=== PATIENT | female | born 1955 | race Caucasian/White ===

== ENCOUNTER → 2017-11-14 | Outpatient (CLI) | payer BC ==
[~2017-11-14] MED LIST: CETIRIZINE; LEVAQUIN 5500 MG/TA1 PO; LIPITOR20 MG PO; MUCINEX DM 30 M1 TE1 PO; PREDNISONE20 MG PO; PREMPRO 0.625/21 TAB PO; PROVENTIL0.09 MG/A1 IH; QUINAPRIL5 MG PO; SERTRALINE100 MG PO; TYLENOL 325MG325 MG PO; VYTORIN; ZOCOR 40MG40 MG PO; ZOFRAN ODT8 MG PO; ZOLOFT100 MG PO; ZYRTEC 10MG10 MG PO
== END ==
LOC: COL.RAD 07:50
DX: R39.198 Other difficulties with micturition (principal); M46.86 Other specified inflammatory spondylopathies, lumbar region; Z90.49 Acquired absence of other specified parts of digestive tract

== ENCOUNTER → 2018-03-31 | Outpatient (CLI) | payer BC | LOC: MC.RAD 10:33 | DX: Z12.31 Encounter for screening mammogram for malignant neoplasm of breast (principal); R92.0 Mammographic microcalcification found on diagnostic imaging of breast ==

== ENCOUNTER → 2018-04-06 | Outpatient (CLI) | payer BC | LOC: MC.RAD 10:30 | DX: R92.0 Mammographic microcalcification found on diagnostic imaging of breast (principal) ==

== ENCOUNTER → 2018-04-12 | Outpatient (CLI) | payer BC | LOC: MC.RAD 09:52 | DX: Z12.31 Encounter for screening mammogram for malignant neoplasm of breast (principal); R92.0 Mammographic microcalcification found on diagnostic imaging of breast; Z98.82 Breast implant status ==

== ENCOUNTER → 2018-06-02 | Outpatient (CLI) | payer BC | LOC: COL.RAD 11:30 → COL.PUL 14:30 | DX: Z01.818 Encounter for other preprocedural examination (principal); C91.11 Chronic lymphocytic leukemia of B-cell type in remission; K76.0 Fatty (change of) liver, not elsewhere classified; Z87.891 Personal history of nicotine dependence ==

== ENCOUNTER 2018-06-23 13:30 | Outpatient (RCR) | payer BC ==
[2018-06-23] VITALS (14 sets, daily range): BP systolic 100–115; BP diastolic 48–60; PULSE 68–89; TEMP 98–98.2
[~2018-06-23] VITALS: Ht 157.5 cm; Wt 95.5 kg
--- NOTE | 2018-06-23 21:34 | NUR ---
Discontinued IV intact.
== END 2018-06-23 21:35 | disposition home or self-care (01) ==
LOC: EUO 13:30
DX: C91.11 Chronic lymphocytic leukemia of B-cell type in remission (principal); D46.Z Other myelodysplastic syndromes; D69.6 Thrombocytopenia, unspecified
CPT/HCPCS: J7050; P9037; P9040

== ENCOUNTER 2018-06-30 15:52 | Inpatient (IN) | payer BC ==
[~2018-06-30] VITALS: Ht 157.5 cm; Wt 75.9 kg
[2018-06-30 18:09] VITALS: BP 129/30; PULSE 96; TEMP 98.8
[2018-06-30 19:54] LABS: MEAN CELL VOLUME 81 fl (80.0-100.0); MEAN CORPUSCULAR HGB CONC 35 g/dl (33.0-37.0); REDCELL DISTRIBUTION WIDTH-CV 19.6 % (11.5-14.5)
[2018-06-30 20:08] LABS: ALBUMIN 3.9 gm/dL (3.5-5.0); BILIRUBIN,TOTAL 0.6 mg/dL (0.0-1.0); CALCIUM 8.7 mg/dL (8.4-10.2); CREATININE, serum 0.81 mg/dL (0.52-1.25); POTASSIUM 3.8 mmol/L (3.4-5.0); TOTAL PROTEIN 6.8 gm/dL (6.4-8.2)
[2018-06-30 20:16] LABS: HEMATOCRIT 20.3 % (37.0-47.0); MEAN CORPUSCULAR HEMOGLOBIN 28 pg (27.0-31.0); PLATELET COUNT 26 K/mm3 (130-400)
[2018-06-30] MEDS ORDERED: DIFLUCAN 100MG100 MG PO (20:42)
[2018-06-30] MEDS ORDERED: ZOVIRAX400 MG PO (20:43)
[2018-06-30 20:44] LABS: BAND 1 % (0-10); EOSINOPHIL 3 % (0-4); LYMPHOCYTE 86 % (20.0-51.0); METAMYELOCYTE 1 % (0-0); NEUTROPHILS 6 % (42.0-75.2); NUCLEATED RED BLOOD CELL 1 (0-6)
[2018-06-30] MEDS ORDERED: MUCINEX D1 TER PO (20:44)
[2018-06-30 20:47] LABS: ANISOCYTOSIS 3+; HYPOCHROMIA 2+; MICROCYTOSIS 2+; OVALOCYTES 1+; POIKILOCYTOSIS 1+; SCHISTOCYTES 1+
[2018-06-30 20:48] LABS: PLATELET ESTIMATE DECREASED (NORMAL); TEAR DROP CELLS 1+
[2018-06-30 21:19] VITALS: BP 125/46; PULSE 99; TEMP 101.4
--- NOTE | 2018-06-30 22:50 | NUR ---
Lilly POE called regarding temp 101.4-- states no tylenol at this point- wants to see see the trend of temps,,
[2018-06-30 23:36] VITALS: BP 103/43; PULSE 96; TEMP 101.6
[2018-07-01] VITALS (11 sets, daily range): BP systolic 104–134; BP diastolic 40–75; PULSE 69–94; TEMP 97.8–100.8
[2018-07-01 02:30] LABS: MUCOUS Present /lpf; PH 6 (5-8); SQUAMOUS EPITHELIAL 0-2 /hpf; URINE APPEARANCE Clear; URINE BACTERIA Rare /hpf; URINE BILIRUBIN Negative (NEGATIVE); URINE BLOOD Negative (NEGATIVE); URINE COLOR Yellow; URINE GLUCOSE Negative (NEGATIVE); URINE KETONE Negative (NEGATIVE); URINE LEUKOCYTE ESTERASE Negative (NEGATIVE); URINE NITRATE Negative (NEGATIVE); URINE PROTEIN(semi-quant) Negative (NEGATIVE); URINE RBC 0-2 /hpf
[2018-07-01 02:41] LABS: COLLECTION METHOD CLEAN CATCH
--- NOTE | 2018-07-01 06:34 | NUR ---
States did get some good sleep last night-- temp high of 101.6, now 100.6
[2018-07-01 07:41] LABS: MEAN CELL VOLUME 82 fl (80.0-100.0); MEAN CORPUSCULAR HGB CONC 34 g/dl (33.0-37.0); RED BLOOD COUNT 2.23 M/mm3 (4.10-5.30); REDCELL DISTRIBUTION WIDTH-CV 19.6 % (11.5-14.5)
[2018-07-01 07:52] LABS: CALCIUM 8.6 mg/dL (8.4-10.2); CREATININE, serum 0.72 mg/dL (0.52-1.25); POTASSIUM 3.9 mmol/L (3.4-5.0)
[2018-07-01 08:07] LABS: HEMATOCRIT 18.2 % (37.0-47.0); HEMOGLOBIN 6.2 g/dl (12.5-16.0); MEAN CORPUSCULAR HEMOGLOBIN 28 pg (27.0-31.0)
[2018-07-01 08:08] LABS: PLATELET COUNT 26 K/mm3 (130-400)
--- NOTE | 2018-07-01 09:30 | NUR ---
Initial assessment completed. Pain to the left, ventral aspect of her tongue, 2 small sores present. The patient also reported pain to the left inner ear. Independent in the room. Dinesh Bland here to see the patient. See new orders.
--- NOTE | 2018-07-01 09:49 | NUR ---
MELISSA met with the patient to discuss a discharge plan. The patient lives in [place] with her , Diego. The patient reports independence with ADLs and does not use any DME. The patient's PCP is Dr. Mazin Alcantara and the patient receives her prescriptions from [facility]. The patient reports no difficulties obtaining her medications. The patient does not have advanced directives in the EMR, but reports she does have them completed at home. Upon discharge the patient plans to return home with Diego. There are no additional needs at this time.
[2018-07-01 14:15] LABS: ANISOCYTOSIS 3+; BAND 4 % (0-10); HYPOCHROMIA 1+; LYMPHOCYTE 92 % (20.0-51.0); NEUTROPHILS 4 % (42.0-75.2); PLATELET ESTIMATE DECREASED (NORMAL)
--- NOTE | 2018-07-01 15:36 | NUR ---
Transfusion started at this time. Rate at 60ml/hr. The patient was educated to the signs and symptoms of reaction. This nurse to remain at the bedside for the first 15 mins. Rate to increase to 125ml/hr following.
--- NOTE | 2018-07-01 15:43 | NUR ---
Rate increased to 125 ml/hr. No signs or symptoms of reaction. The call light is in place.
--- NOTE | 2018-07-01 20:30 | NUR ---
Initial shift assessment done- states has just minimal pain at this time- throat/left ear/BEGUM-05/21,,Up to bathroom with assist,voiding without problems.
[2018-07-02] VITALS (7 sets, daily range): BP systolic 107–134; BP diastolic 43–499; PULSE 82–96; TEMP 98–99.9
--- NOTE | 2018-07-02 05:56 | NUR ---
Slept fair last night- temp this morning 98.9, quiet night
[2018-07-02 07:57] LABS: GRAN % 1.3 % (42.2-75.2); LYMPH # 0.7 (1.2-3.4); LYMPH % 97.3 % (20.0-51.0); MEAN CELL VOLUME 82 fl (80.0-100.0); MEAN CORPUSCULAR HGB CONC 34 g/dl (33.0-37.0); MONO % 1.4 % (1.7-9.3); RED BLOOD COUNT 2.54 M/mm3 (4.10-5.30); REDCELL DISTRIBUTION WIDTH-CV 18.7 % (11.5-14.5)
--- NOTE | 2018-07-02 08:00 | NUR ---
No shortness of breath or cough. No complaints of pain or needs at this time. Student, RN, Sara Andrews assisting with assessment and medications this morning.
[2018-07-02 08:04] LABS: HEMATOCRIT 20.7 % (37.0-47.0); HEMOGLOBIN 7.1 g/dl (12.5-16.0); MEAN CORPUSCULAR HEMOGLOBIN 28 pg (27.0-31.0); PLATELET COUNT 37 K/mm3 (130-400)
[2018-07-02 08:07] LABS: CALCIUM 8.7 mg/dL (8.4-10.2); CREATININE, serum 0.68 mg/dL (0.52-1.25); POTASSIUM 3.9 mmol/L (3.4-5.0)
--- NOTE | 2018-07-02 11:00 | NUR ---
Assisted up to the shower. No pain or needs at this time. Linens changed at this time.
--- NOTE | 2018-07-02 19:43 | NUR ---
No change throughout the shift. The remains at the bedside. Report given to BÁRBARA Riddle to resume care. Some irritating pain reported to the left ear and ventral, left tongue. However, the mouth pain has improved.
--- NOTE | 2018-07-02 21:25 | NUR ---
Sitting at bedside. Assessment complete. Lungs clear. Heart sounds normal. Bowels active x4. Pulses strong throughout. No edema noted. Rash present midlower back. Bruise to right forearm. Left INT flushes well. Denies pain. Denies needs at this time. Call ligth in reach.
[2018-07-03] VITALS (12 sets, daily range): BP systolic 106–147; BP diastolic 41–55; PULSE 79–96; TEMP 98.4–101.4
--- NOTE | 2018-07-03 01:24 | NUR ---
Resting in bed asleep. Call light in reach.
--- NOTE | 2018-07-03 04:05 | NUR ---
Resting in bed. Call light in reach.
[2018-07-03 06:44] LABS: MEAN CELL VOLUME 81 fl (80.0-100.0); MEAN CORPUSCULAR HGB CONC 35 g/dl (33.0-37.0); RED BLOOD COUNT 2.42 M/mm3 (4.10-5.30); REDCELL DISTRIBUTION WIDTH-CV 18.4 % (11.5-14.5)
[2018-07-03 06:55] LABS: CALCIUM 8.6 mg/dL (8.4-10.2); CREATININE, serum 0.68 mg/dL (0.52-1.25)
[2018-07-03 07:16] LABS: HEMATOCRIT 19.7 % (37.0-47.0); MEAN CORPUSCULAR HEMOGLOBIN 28 pg (27.0-31.0)
[2018-07-03 07:17] LABS: HEMOGLOBIN 6.8 g/dl (12.5-16.0); PLATELET COUNT 34 K/mm3 (130-400)
--- NOTE | 2018-07-03 07:32 | NUR ---
Report given to BÁRBARA Burns. Patient developed rash on midlower back. Notified next shift to pass to hospitalist. Otherwise uneventful night. Resting in bed this AM. Call light in reach.
--- NOTE | 2018-07-03 08:00 | NUR ---
ASSESSMENT COMPLETE. PATIENT IS A&O X3. PATIENT DENIES HAVING PAIN AT THIS TIME. BREATHING IS EVEN AND UNLABORED ON ROOM AIR. LEFT AC INT FLUSHES EASILY AND IS CDI. PATIENT IS SITTING UP IN BED WATCHING TV AND EATING HER BREAKFAST. PATIENT DENIES ANY FURTHER NEEDS AT THIS TIME. CALL LIGHT WITHIN REACH. WILL CONTINUE TO MONITOR.
[2018-07-03 10:51] LABS: LYMPHOCYTE 98 % (20.0-51.0); PLATELET ESTIMATE DECREASED (NORMAL)
[2018-07-03 10:52] LABS: ANISOCYTOSIS 1+; HYPOCHROMIA 1+
--- NOTE | 2018-07-03 11:38 | NUR ---
Initial visit; Patient thanked Officer Lieutenant for offering God's blessings.
--- NOTE | 2018-07-03 15:46 | NUR ---
Blood transfusion started at this time. Verified with BÁRBARA Ramesh. Will remain at the bedside for first 15 minutes. Education regarding blood transfusion and any adverse reactions reviewed with the pt and her . Both verbalize understanding.
--- NOTE | 2018-07-03 18:30 | NUR ---
Patient resting in bed throughout the day. She denies any pain at this time. IV in left AC infiltrated. Removed, catheter intact, applied pressure until bleeding stopped and protective dressing applied. New 20G IV started in right anterior wrist, X1 attempt with no difficulties, patient tolerated well. IV flushes easily with no complaints of burning or pain. Blood is transfusing through IV in right wrist. Patient is resting in bed with at bedside and denies any further questions or concerns at this time. Call light is within reach.
--- NOTE | 2018-07-03 19:00 | NUR ---
Report received from BÁRBARA Burns.
--- NOTE | 2018-07-03 19:28 | NUR ---
Patient resting in bed. Assessment complete. Lungs clear. Heart sounds normal. Bowels active x4. Pulses strong throughout. No edema noted. Rash to midlower back present. Patient reports from "sweating." Reports oral pain to "sores in mouth." Has velvet glove oral compound PRN to aide with discomfort. Left upper arm red and skin taut and warm to touch from infiltration during blood transfusion. Reports mild pain when touched. Refused flonase this evening. Denies other pain. Denies needs at this time. Call light in reach.
--- NOTE | 2018-07-03 22:35 | NUR ---
Patient reports feeling warm. Temperature 101.4. Per progress note-tylenol on hold to follow fever curve. DEANNA Dang notified. No new orders at this time.
[2018-07-04] VITALS (8 sets, daily range): BP systolic 119–150; BP diastolic 45–59; PULSE 52–95; TEMP 98.3–102
--- NOTE | 2018-07-04 00:10 | NUR ---
Patient reports pain in left ear, face, and sore throat. Spoke with DEANNA Dang for order for pain medication. Added one time dose of tylenol 650mg. Provided to patient. Will monitor.
--- NOTE | 2018-07-04 06:28 | NUR ---
Patient resting in bed this AM. Temperature increased to 101.4 resolved with enviromental changes. Received x1 dose of tylenol for headache. Otherwise uneventful night. Call light in reach.
[2018-07-04 06:29] LABS: MEAN CELL VOLUME 81 fl (80.0-100.0); MEAN CORPUSCULAR HGB CONC 35 g/dl (33.0-37.0); RED BLOOD COUNT 2.64 M/mm3 (4.10-5.30); REDCELL DISTRIBUTION WIDTH-CV 17.3 % (11.5-14.5)
[2018-07-04 06:40] LABS: CALCIUM 8.7 mg/dL (8.4-10.2); CREATININE, serum 0.64 mg/dL (0.52-1.25)
[2018-07-04 07:07] LABS: HEMATOCRIT 21.5 % (37.0-47.0); HEMOGLOBIN 7.5 g/dl (12.5-16.0); MEAN CORPUSCULAR HEMOGLOBIN 28 pg (27.0-31.0)
[2018-07-04 07:08] LABS: PLATELET COUNT 39 K/mm3 (130-400)
--- NOTE | 2018-07-04 07:17 | NUR ---
Report given to BÁRBARA Landry.
--- NOTE | 2018-07-04 08:10 | NUR ---
Pt alert and oriented. Pt has mouth sores that velvet glove used to manage. Pt given Ultram to manage pain. Pt rates pain 5/10 at this time sinus and back itching and mouth sore. Pt VS WNL this am. Pt has breakfast ordered and spouse at bedside. Pt IV intact, and no redness or infiltration noted. Pt reported green small sputum this am and let Dr. Herbert know this am. Pt denies further needs and has call light in reach.
[2018-07-04 08:39] LABS: ANISOCYTOSIS 1+; HYPOCHROMIA 1+; LYMPHOCYTE 100 % (20.0-51.0); PLATELET ESTIMATE DECREASED (NORMAL)
--- NOTE | 2018-07-04 18:17 | NUR ---
Pt stable this shift. Pt spiked temp after returned back from CT and was covered with blankets per pt. Pt uncovered and drank water. Pt temp was later rechecked and 99.9 F. Pt has pain in mouth and sinuses and back managed with PRN medications. Pt has family at bedside all day. Pt has not eaten much but has drank fluids well today and supplements. Pt alert and oriented and denies needs at this time. Pt remains on neutropenic reverse isolation precautions.
--- NOTE | 2018-07-04 19:06 | NUR ---
Report received from BÁRBARA Landry
--- NOTE | 2018-07-04 19:06 | NUR ---
Pt report given to Janessa GRANGER
--- NOTE | 2018-07-04 22:25 | NUR ---
Resting in bed. Assessment complete. Lungs clear. Heart sounds normal. Bowels active x4. Pulses strong througout. No edema noted. Rash to midlower back present. No change from previos assessment. Reporting 4/10 in jaw, left ear, and neck. Provided with PRN tramadol. Denies other needs at this time. Call light in reach.
[2018-07-05] VITALS (8 sets, daily range): BP systolic 98–124; BP diastolic 39–93; PULSE 73–84; TEMP 98.8–100.8
--- NOTE | 2018-07-05 01:45 | NUR ---
Patient resting in bed asleep.
--- NOTE | 2018-07-05 03:15 | NUR ---
Resting in bed. Denies needs. Call light in reach.
[2018-07-05 06:40] LABS: MEAN CELL VOLUME 82 fl (80.0-100.0); MEAN CORPUSCULAR HGB CONC 35 g/dl (33.0-37.0); RED BLOOD COUNT 2.54 M/mm3 (4.10-5.30); REDCELL DISTRIBUTION WIDTH-CV 17.6 % (11.5-14.5)
--- NOTE | 2018-07-05 06:45 | NUR ---
Patient had uneventful night. Elevated temps throughout shift. X1 episode of nausea, resolved by drinking water. Denies needs this AM. Report given to BÁRBARA Edward.
[2018-07-05 07:07] LABS: HEMATOCRIT 20.8 % (37.0-47.0); HEMOGLOBIN 7.3 g/dl (12.5-16.0); MEAN CORPUSCULAR HEMOGLOBIN 29 pg (27.0-31.0); PLATELET COUNT 30 K/mm3 (130-400)
--- NOTE | 2018-07-05 08:30 | NUR ---
PT IS a+oX3, pleasant, denies SOB, c/o sharp peircing pain and pressure to lt ear, neck, and lower back. Meds provided per orders. Physical assessment completed. Vitals stable, pt afebrile at this time. call light in reach
[2018-07-05 09:33] LABS: LYMPHOCYTE 98 % (20.0-51.0); NEUTROPHILS 2 % (42.0-75.2)
[2018-07-05 09:35] LABS: ANISOCYTOSIS 1+; HYPOCHROMIA 1+; PLATELET ESTIMATE DECREASED (NORMAL)
--- NOTE | 2018-07-05 13:04 | NUR ---
Warm pack provided per pt request for lt ear
--- NOTE | 2018-07-05 17:09 | NUR ---
Through shift pt vitals have been stable, she is running a low grade temp again at 100.5. Pt denies SOB, dizziness. Pain reported to left ear and neck, meds given per orders. Multiple IV attempts made by this Rn and charge, house has been called. No needs through day, at bedside. call light in reach adn this RN encouraged pt to order dinner
--- NOTE | 2018-07-05 19:20 | NUR ---
Report given to Meseret GRANGER, pt denies needs
--- NOTE | 2018-07-05 23:40 | NUR ---
Tramadol 50mg given at this time for pain to mouth/left ear of 3/10
[2018-07-06] VITALS (13 sets, daily range): BP systolic 93–120; BP diastolic 36–56; PULSE 71–86; TEMP 98.5–100.8
--- NOTE | 2018-07-06 06:03 | NUR ---
States slept well last night-- temp 98.8 at this time, medicated with Tramadol for left ear/mouth pain.
[2018-07-06 06:15] LABS: MEAN CELL VOLUME 82 fl (80.0-100.0); MEAN CORPUSCULAR HGB CONC 34 g/dl (33.0-37.0); RED BLOOD COUNT 2.35 M/mm3 (4.10-5.30); REDCELL DISTRIBUTION WIDTH-CV 17.2 % (11.5-14.5)
[2018-07-06 07:05] LABS: HEMATOCRIT 19.2 % (37.0-47.0); HEMOGLOBIN 6.6 g/dl (12.5-16.0); MEAN CORPUSCULAR HEMOGLOBIN 28 pg (27.0-31.0); PLATELET COUNT 29 K/mm3 (130-400)
[2018-07-06 08:53] LABS: LYMPHOCYTE 98 % (20.0-51.0); NEUTROPHILS 2 % (42.0-75.2)
[2018-07-06 08:54] LABS: HYPOCHROMIA 1+; PLATELET ESTIMATE DECREASED (NORMAL); SCHISTOCYTES 1+
--- NOTE | 2018-07-06 09:00 | NUR ---
Patient sitting in bed finishing breakfast. shift assessment complete. patient denies pain, numbness or tingling, palpitations, dizziness or n/v. right hand IV is CDI. Right forearm IV looks a little swollen and red. Patient will be receiving one unit of blood, will use the right hand IV. Patient up with physical therapy. Pt tolerated well. Call light within reach.
--- NOTE | 2018-07-06 10:20 | NUR ---
patient is stating pain in left side of ear and little in the mouth. patient does have sore under tongue. pt rating pain at 4/10, shooting pain into left ear. patient can have tramadol at this time.
--- NOTE | 2018-07-06 11:41 | NUR ---
SW followed up with patient about discharge plan. Patient reports she plans to return home with her . Patient reports she is walking in the halls without any assistance and without a walker. SW spoke with PT and they report she is doing well. No anticipated discharge needs at this time.
--- NOTE | 2018-07-06 13:55 | NUR ---
Primary nurse was assisted with [id number] patient care by [employer] student Bibi Saldana and [employer] instructor Zoe Buitrago RN-.
--- NOTE | 2018-07-06 15:09 | NUR ---
UNIT OF BLOOD STARTED PER PROTOCOL. BLOOD PRODUCT VERIFIED BY BÁRBARA LOPEZ. WILL REMAIN AT BEDSIDE FOR 15 MIN. SIGNS AND SYMPTOMS OF ADVERSE REACTION DISCUSSED WITH PATIENT.
--- NOTE | 2018-07-06 15:40 | NUR ---
RATE INCREASED TO 100 MLS/HR. PATIENT TOLERATING TRANSFUSION THUS FAR. REMAINED AT BEDSIDE FIRST 15 MINUTES.
--- NOTE | 2018-07-06 15:42 | NUR ---
PATIENT STATES SHE HAS RASH ON LOWER BACK. THIS NURSE CHECKED. IT DOESN'T APPEAR TO BE A RASH, LOOKS LIKE SHE MAY BE BREAKING OUT. PATIENT DID STATE SHE HAD SOME AREAS PRIOR TO ARRIVING HERE BUT IT HAS GOTTEN WORSE. PT STATES IT ITCHES A LITTLE AND NOTICED IT MORE AFTER HER SHOWER.
--- NOTE | 2018-07-06 16:53 | NUR ---
PATIENT RESTING IN BED WITH AT BEDSIDE. BLOOD TRANSFUSION RATE INCREASED TO 125 MLS/HR. PATIENT HAS NO SIGNS OF ADVERSE REACTIONS. PATIENTS RFA IV AND RH IV WERE REMOVED BY BÁRBARA ROSA AFTER PICC LINE PLACEMENT. RFA IV SHOWED PHLEBITIS. WARM PACK PROVIDED. NO OTHER NEEDS AT THIS TIME.
--- NOTE | 2018-07-06 19:12 | NUR ---
PATIENT IS COMPLAINING OF SEVERE PAIN IN LEFT SIDE OF EAR AND NASAL CAVITY. STATED TRAMADOL WAS NOT WORKING. WAS ABLE TO GET MORPHINE PRN, ADMINISTERED 1MG. PATIENT STATES SHE FEELS BETTER. PATIENT ALSO HAD WARM PACK AND THAT HELPED.
--- NOTE | 2018-07-06 19:38 | NUR ---
Report given to BÁRBARA Carl. Patient says she is feeling a little better since the morphine and warm compress.
--- NOTE | 2018-07-06 21:00 | NUR ---
Initial shift assessment done- states pain is ok at this time 07/19 to left ear-- will call when pain meds needed,, PICC to [facility], didnt eat any supper- states no appetite at this time, resting quietly,states overall the Morphine IV is helping with pain control. at bedside.
--- NOTE | 2018-07-06 22:00 | NUR ---
States pain to left ear/throat 11/18--talked with patient, will increase dose to 2mg Morphine at this time
[2018-07-07 03:39] VITALS: BP 110/40; PULSE 80; TEMP 99.9
[2018-07-07 06:02] LABS: MEAN CELL VOLUME 83 fl (80.0-100.0); MEAN CORPUSCULAR HGB CONC 35 g/dl (33.0-37.0); RED BLOOD COUNT 2.42 M/mm3 (4.10-5.30); REDCELL DISTRIBUTION WIDTH-CV 16.2 % (11.5-14.5)
[2018-07-07 06:06] LABS: HEMOGLOBIN 6.9 g/dl (12.5-16.0); MEAN CORPUSCULAR HEMOGLOBIN 29 pg (27.0-31.0)
[2018-07-07 06:07] LABS: PLATELET COUNT 27 K/mm3 (130-400)
--- NOTE | 2018-07-07 06:07 | NUR ---
Quiet night- did get some sleep,, Morphine was just given the one time at start of shift,, this morning states her pain to left ear/thraot is 3/10. would like the 100mg of tramadol at this time- wants to just go back to sleep. High temp this shift was 100.8 at midnight-
--- NOTE | 2018-07-07 07:15 | NUR ---
Bedside shift report received from BÁRBARA Carl .PT in bed resting, denies needs, will continue to monitor.
--- NOTE | 2018-07-07 07:30 | NUR ---
Dr. Bond to see pt this am, orders received for 1U PRBCS, called lab to get ordered but shortly after call received from Dr. Bond and he will transfer pt to [facility] today for further care. Pt updated with pending plan, called Hospitalist team who is admitting to pass along Varun's message. Will continue to monitor.
[2018-07-07 08:39] VITALS: BP 117/46; PULSE 76; TEMP 100.3
[2018-07-07 08:50] LABS: ANISOCYTOSIS 2+; HYPOCHROMIA 1+; LYMPHOCYTE 88 % (20.0-51.0); PLATELET ESTIMATE DECREASED (NORMAL)
--- NOTE | 2018-07-07 11:13 | NUR ---
Pt updated with POC. Physician acceptance confirmed, waiting on a bed at [facility]. Assessment charted. Pt denies needs, will continue to monitor.
[2018-07-07 11:55] VITALS: BP 112/40; PULSE 74; TEMP 99.4
--- NOTE | 2018-07-07 13:20 | NUR ---
Reported off to BÁRBARA Martinez
--- NOTE | 2018-07-07 13:34 | NUR ---
Primary nurse was assisted with [id number] [employer] student Susan Nicholas and [employer] instructor Zoe Buitrago RN-BC
[2018-07-07 15:27] VITALS: BP 114/43; PULSE 79; TEMP 99.8
[2018-07-07 16:40] VITALS: BP 114/43; PULSE 79; TEMP 99.8
--- NOTE | 2018-07-07 17:16 | NUR ---
Report called to [facility] nurse who will be receiving patient this evening. Pt given PRN pain meds as requested for ride in ambulance. Paramedics report given. Pt belongings left with family. Pt left via cart with EMS staff. Criteria met.
== END 2018-07-07 17:15 | disposition short-term general hospital (02) | DRG 809 ==
LOC: MEDICAL 15:52
PROVIDERS: Internal Medicine; Nurse Practitioner Family; Physician Assistant; ADMIT Family Medicine
PROC: 02HV33Z Insertion of Infusion Device into Superior Vena Cava, Percutaneous Approach (ICD-10-PCS; principal; 2018-07-06)
DX: D70.1 Agranulocytosis secondary to cancer chemotherapy (principal); C91.11 Chronic lymphocytic leukemia of B-cell type in remission; T45.1X5A Adverse effect of antineoplastic and immunosuppressive drugs, initial encounter; R50.81 Fever presenting with conditions classified elsewhere; D61.810 Antineoplastic chemotherapy induced pancytopenia; D46.9 Myelodysplastic syndrome, unspecified; I10 Essential (primary) hypertension; E78.5 Hyperlipidemia, unspecified; Z87.891 Personal history of nicotine dependence; J01.20 Acute ethmoidal sinusitis, unspecified; J01.00 Acute maxillary sinusitis, unspecified; K13.70 Unspecified lesions of oral mucosa
CPT/HCPCS: 99222-AI; 99231-AI; 99232-AI; 99239; A4216; C1751; C1894; J0692; J1447; J2270; J3370; J7050; P9040

== ENCOUNTER 2018-07-31 13:30 | Outpatient (RCR) | payer BC ==
--- NOTE | 2018-07-26 13:00 | NUR ---
PICC intact right upper arm with sterile dressing change done with insertion site cleansed with chloraprep x 1, chlorhexidine impregnated disk applied. no signs or symptoms of IV complications noted. no concerns voiced. wrapped with laura to protect catheter.
[2018-07-26 13:24] VITALS: BP 142/69; PULSE 92; TEMP 98.3
[2018-07-26 13:44] LABS: MEAN CELL VOLUME 85 fl (80.0-100.0); MEAN CORPUSCULAR HGB CONC 35 g/dl (33.0-37.0); PLATELET COUNT 67 K/mm3 (130-400); RED BLOOD COUNT 3.09 M/mm3 (4.10-5.30); REDCELL DISTRIBUTION WIDTH-CV 14.4 % (11.5-14.5)
[2018-07-26 13:45] LABS: HEMATOCRIT 26.1 % (37.0-47.0); MEAN CORPUSCULAR HEMOGLOBIN 29 pg (27.0-31.0)
[2018-07-26 13:55] LABS: BASOPHIL 1 % (0-2); LYMPHOCYTE 82 % (20.0-51.0); MYELOCYTE 1 % (0-0); NEUTROPHILS 15 % (42.0-75.2)
[2018-07-26 13:56] LABS: ANISOCYTOSIS 1+; OVALOCYTES 2+; PLATELET ESTIMATE DECREASED (NORMAL); POLYCHROMASIA 1+
[2018-07-27 13:12] LABS: HEMATOCRIT 25.5 % (37.0-47.0); HEMOGLOBIN 8.8 g/dl (12.5-16.0); MEAN CELL VOLUME 84 fl (80.0-100.0); MEAN CORPUSCULAR HEMOGLOBIN 29 pg (27.0-31.0); MEAN CORPUSCULAR HGB CONC 35 g/dl (33.0-37.0); PLATELET COUNT 63 K/mm3 (130-400); RED BLOOD COUNT 3.03 M/mm3 (4.10-5.30); REDCELL DISTRIBUTION WIDTH-CV 14.6 % (11.5-14.5)
[2018-07-27 13:27] LABS: ANISOCYTOSIS 1+; LYMPHOCYTE 86 % (20.0-51.0); MYELOCYTE 1 % (0-0); NEUTROPHILS 12 % (42.0-75.2); PLATELET ESTIMATE DECREASED (NORMAL); SCHISTOCYTES 1+
[2018-07-27 13:28] LABS: POLYCHROMASIA 1+
[2018-07-27 13:36] VITALS: BP 98/73; PULSE 91; TEMP 98.4
[2018-07-28 09:00] VITALS: BP 106/77; PULSE 89; TEMP 98
[2018-07-28 09:39] LABS: MEAN CELL VOLUME 84 fl (80.0-100.0); MEAN CORPUSCULAR HGB CONC 35 g/dl (33.0-37.0); PLATELET COUNT 64 K/mm3 (130-400); RED BLOOD COUNT 2.92 M/mm3 (4.10-5.30); REDCELL DISTRIBUTION WIDTH-CV 14.5 % (11.5-14.5)
[2018-07-28 09:40] LABS: HEMATOCRIT 24.6 % (37.0-47.0); HEMOGLOBIN 8.6 g/dl (12.5-16.0); MEAN CORPUSCULAR HEMOGLOBIN 29 pg (27.0-31.0)
[2018-07-28 09:54] LABS: ANISOCYTOSIS 1+; BAND 3 % (0-10); BASOPHIL 1 % (0-2); LYMPHOCYTE 81 % (20.0-51.0); MYELOCYTE 1 % (0-0); NEUTROPHILS 12 % (42.0-75.2); NUCLEATED RED BLOOD CELL 1 (0-6)
[2018-07-28 09:55] LABS: POLYCHROMASIA 1+
[2018-07-28 09:56] LABS: OVALOCYTES 1+; SCHISTOCYTES 1+
[~2018-07-31] VITALS: Ht 157.5 cm; Wt 78.5 kg
[~2018-07-31 13:30] MED LIST changes: +ACCUPRIL10 M1 PO; +DIFLUCAN 100MG100 MG PO; +HYDROCORTISO28.35 GM TOP; +LEVAQUIN 750MG750 M1 PO; +MUCINEX D1 TER PO; +NOXAFILTAB PO; +PRILOSEC 20MG20 MG PO; +TRIAMCINOLONE A15 G3 TP; +ZOVIRAX800 MG PO
[2018-07-31 13:55] VITALS: BP 115/45; PULSE 94; TEMP 98.3
[2018-07-31 14:12] LABS: MEAN CELL VOLUME 86 fl (80.0-100.0); MEAN CORPUSCULAR HGB CONC 34 g/dl (33.0-37.0); PLATELET COUNT 85 K/mm3 (130-400); RED BLOOD COUNT 2.74 M/mm3 (4.10-5.30); REDCELL DISTRIBUTION WIDTH-CV 15.7 % (11.5-14.5)
[2018-07-31 14:23] LABS: HEMATOCRIT 23.6 % (37.0-47.0); HEMOGLOBIN 8.1 g/dl (12.5-16.0); MEAN CORPUSCULAR HEMOGLOBIN 30 pg (27.0-31.0)
[2018-07-31 15:06] LABS: BAND 2 % (0-10); LYMPHOCYTE 73 % (20.0-51.0); MYELOCYTE 1 % (0-0); NEUTROPHILS 23 % (42.0-75.2)
[2018-07-31 15:09] LABS: MICROCYTOSIS 2+
[2018-07-31 15:10] LABS: ANISOCYTOSIS 3+; PLATELET ESTIMATE DECREASED (NORMAL)
--- NOTE | 2018-08-02 11:36 | NUR ---
Voice mail message left on [facility] phone. patient going to be receiving P[facility].
--- NOTE | 2018-08-02 12:28 | NUR ---
Pt called this nurse yesterday and cancelled further appointments.This nurse reported to Dr Ruba Muhammad nurse to report.Ok to close account.per Sabina pt not taking further treatment at their office.
== END 2018-08-02 12:29 | disposition home or self-care (01) ==
LOC: EUO 13:30
PROVIDERS: Internal Medicine
DX: C91.11 Chronic lymphocytic leukemia of B-cell type in remission (principal); D69.6 Thrombocytopenia, unspecified; Z95.9 Presence of cardiac and vascular implant and graft, unspecified